=== PATIENT | male | born 1975 | race Caucasian/White ===

== ENCOUNTER → 2019-07-22 08:12 | Outpatient (BNVA) | payer MEDICARE, MEDICAID, SELFPAY | PROVIDERS: Family Provider Nurse Practitioner; PCP Nurse Practitioner; Visit Provider Nurse Practitioner Psychiatric/Mental Health | DX: F72 Severe intellectual disabilities (principal); Z72.89 Other problems related to lifestyle; F84.0 Autistic disorder | CPT/HCPCS: 99213 ==

== ENCOUNTER → 2019-10-27 07:43 | Outpatient (BNVA) | payer MEDICARE, MEDICAID, SELFPAY | PROVIDERS: Family Provider Nurse Practitioner; PCP Internal Medicine; Visit Provider Nurse Practitioner Psychiatric/Mental Health | DX: F72 Severe intellectual disabilities (principal); Z72.89 Other problems related to lifestyle; F84.0 Autistic disorder; F41.1 Generalized anxiety disorder | CPT/HCPCS: 99213 ==

== ENCOUNTER → 2020-01-12 07:55 | Outpatient (BNVA) | payer MEDICAID, SELFPAY | PROVIDERS: Family Provider Nurse Practitioner; Visit Provider Nurse Practitioner Psychiatric/Mental Health | DX: F72 Severe intellectual disabilities (principal); Z72.89 Other problems related to lifestyle; F84.0 Autistic disorder | CPT/HCPCS: 99214 ==

== ENCOUNTER → 2020-02-11 08:09 | Outpatient (BNVA) | payer MEDICAID, SELFPAY | PROVIDERS: Family Provider Nurse Practitioner; Visit Provider Nurse Practitioner Psychiatric/Mental Health | DX: F72 Severe intellectual disabilities (principal); Z72.89 Other problems related to lifestyle; F84.0 Autistic disorder | CPT/HCPCS: 99214 ==

== ENCOUNTER → 2020-02-16 09:04 | Outpatient (BNVA) | payer MEDICARE, MEDICAID, SELFPAY | PROVIDERS: Family Provider Nurse Practitioner; Visit Provider Nurse Practitioner Psychiatric/Mental Health | DX: Z79.899 Other long term (current) drug therapy (principal) | CPT/HCPCS: 80061; 83036 ==

== ENCOUNTER → 2020-03-17 08:16 | Outpatient (BNVA) | payer MEDICARE, MEDICAID, SELFPAY | PROVIDERS: Family Provider Nurse Practitioner; Visit Provider Nurse Practitioner Psychiatric/Mental Health | DX: F72 Severe intellectual disabilities (principal); Z72.89 Other problems related to lifestyle; F84.0 Autistic disorder | CPT/HCPCS: 99213 ==

== ENCOUNTER → 2020-06-09 08:18 | Outpatient (BNVA) | payer MEDICARE, MEDICAID, SELFPAY | PROVIDERS: Visit Provider Nurse Practitioner Psychiatric/Mental Health | DX: F84.0 Autistic disorder (principal); F72 Severe intellectual disabilities; Z72.89 Other problems related to lifestyle | CPT/HCPCS: 99213 ==

== ENCOUNTER → 2020-09-06 07:40 | Outpatient (BNVA) | payer MEDICARE, MEDICAID, SELFPAY | PROVIDERS: Visit Provider Nurse Practitioner Psychiatric/Mental Health | DX: F84.0 Autistic disorder (principal); F72 Severe intellectual disabilities; Z72.89 Other problems related to lifestyle | CPT/HCPCS: 99214 ==

== ENCOUNTER → 2020-12-21 13:31 | Outpatient (BNVA) | payer MEDICARE, MEDICAID, SELFPAY | PROVIDERS: Visit Provider Nurse Practitioner Psychiatric/Mental Health | DX: F72 Severe intellectual disabilities (principal); Z72.89 Other problems related to lifestyle; F84.0 Autistic disorder | CPT/HCPCS: 99214 ==

== ENCOUNTER → 2021-02-20 10:08 | Outpatient (BNVA) | payer MEDICARE, MEDICAID, SELFPAY | PROVIDERS: Visit Provider Nurse Practitioner Psychiatric/Mental Health | DX: F72 Severe intellectual disabilities (principal); Z72.89 Other problems related to lifestyle; F84.0 Autistic disorder | CPT/HCPCS: 99214 ==

== ENCOUNTER → 2021-08-08 10:29 | Outpatient (BNVA) | payer MEDICARE, MEDICAID, SELFPAY | PROVIDERS: Visit Provider Nurse Practitioner Psychiatric/Mental Health | DX: F72 Severe intellectual disabilities (principal); F84.0 Autistic disorder; Z72.89 Other problems related to lifestyle; Z79.899 Other long term (current) drug therapy | CPT/HCPCS: 99214 ==

== ENCOUNTER 2021-09-28 11:28 | Observation (INO) | payer MEDICARE, MEDICAID, SELFPAY ==
[2021-09-28 11:33] VITALS: BP 140/91; PULSE 82; RESP 16; TEMP 36.7; O2SAT 95
--- NOTE | 2021-09-28 11:46 | W.ED.GENADLT ---
HPI - General Adult General: Chief complaint: General Medical Stated complaint: found object in stool Time Seen by Provider: 09/28/21 11:45 Limitations: other History of Present Illness: Mr Kimball is a 46-year-old gentleman with history of severe intellectual disability, nonverbal at baseline, history of self-injurious behavior who presents to the emergency department accompanied by staff for concern over foreign body in stool. He has had approximately 1 week history of constipation. He was seen on Saturday for constipation in the outpatient setting and treated with mag citrate. He did have bowel movement on Saturday and a toothpick was noted in this. He has not had recurrence of bowel movement since that time. He began yesterday starting to appear more uncomfortable. He is unable to articulate his symptoms however has been biting his hands more which staff notes is typical of discomfort or worsening. History otherwise limited by baseline. Review of Systems General: Reports: ROS unobtainable due to medical condition PFSH ED PFSH: Medical History Autism spectrum disorder with accompanying language impairment and intellectual disability, requiring very substantial support GI bleed Herpes zoster Psychiatric care Self-injurious behavior Severe intellectual disabilities Family History Other Gallbladder disease Social History Smoking and tobacco status: never smoked Alcohol intake: never Substance/Drug Use: never Lives independently: No Housing: Other Details: [facility] Marital status: Single Current occupational status: disabled Physical Exam Const: COMMON NORMALS: alert GENERAL APPEARANCE: cooperative and well developed HENMT: COMMON NORMALS: normocephalic and atraumatic HEAD & SCALP: normocephalic and atraumatic THROAT: posterior oropharynx normal Eye: COMMON NORMALS: conjunctivae normal CONJUNCTIVA: Yes conjunctivae normal SCLERA: sclerae normal Neck/C-Spine: COMMON NORMALS: supple GENERAL: Yes trachea midline Resp: COMMON NORMALS: normal respiratory effort and clear to auscultation bilaterally AUSCULTATION: clear to auscultation bilaterally Cardio: COMMON NORMALS: regular rate and regular rhythm RATE: regular rate RHYTHM: regular rhythm GI: COMMON NORMALS: Soft to palpation PALPATION: Yes Soft to palpation, Yes Tenderness to palpation present (GI), No Guarding due to palpation present (GI) and No Rigid due to palpation PERCUSSION: normal to percussion Extremity: GENERAL: Yes normal exam except as noted and No edema Neuro: COMMON NORMALS: moves all extremities SENSORIUM/ORIENTATION: Yes alert Course ED course: - Patient was seen and evaluated by me at bedside - Patient placed on cardiac monitors, IV access obtained - Initial evaluation notable for exam as above. Limited due to patient's baseline - Labs personally interpreted by me - Labs notable for no leukocytosis, normal hemoglobin. Electrolytes unremarkable. - Imaging notable for likely esophagitis and gastritis. Additional air-fluid levels in small bowel suspicious for adynamic ileus or developing small bowel obstruction. Additional evidence of pneumonia. -Antibiotics ordered - Upon serial reexamination after treatment the patient was similar - Based on patient history, evaluation, and testing as interpreted the most likely cause of the patient's condition is uncertain. Possibly pneumonia and ileus. -Challenging situation, under normal circumstances patient could trial treatment at home however given patient's baseline and inability to assess worsening he requires further inpatient observation to await return of bowel functions and improved abdominal discomfort - The results of ED evaluation were discussed with the patient's staffincluding plan for admission due to requirement for level of care not available if discharged to prevent significant worsening/deterioration. - Admitting service was contacted and Dr Mckoy with the hospitalist service agreed to admit the patient - Patient was admitted without further deterioration or significant events. Note: Click bubbles or prepopulated ruff in note writing are used for assistance with data collection and billing and are inherently more limited than narrative and other text portions of this note. Please use narrative for additional clinical history and defer to narrative/free test for any case of contradictory information. If information appears in only free text or click bubble it should be considered present or absent as reported. Please contact note assembly instructions writer for clarifications of clinical information or contradictory information. MDM is a brief summary, contradictory or erroneous seeming information should be clarified and full note should be reviewed. Vital Signs: Vital signs: Vital Signs Temperature 97.4 F L 09/29/21 13:43 Pulse Rate 69 09/29/21 13:43 Respiratory Rate 17 09/29/21 13:43 Blood Pressure 115/75 09/29/21 08:10 Pulse Oximetry 100 09/29/21 13:43 [facility] - General Adult Medical Decision Making 46-year-old gentleman who is nonverbal at baseline presenting with concern over ingested foreign body and increasing self-harm behaviors consistent with discomfort. CT with possible pneumonia as well as ileus versus small bowel obstruction. Admitted for further observation and treatment. Medical Records I reviewed the patient's medical records. Lab Data I reviewed the patient's lab results. : 09/29/21 08:29 09/29/21 08:29 Radiology Impressions Abdomen/Pelvis CT 09/28/21 11:59 IMPRESSION: 1. Small esophageal hiatal hernia with diffuse thickening suspicious for esophagitis. Thickening of the gastric fundus suspicious for gastritis. 2. Distended stomach with air-fluid level and diffuse gaseous distention of small bowel loops throughout the anterior abdomen. Distal small bowel loops appear decompressed. Findings suspicious for adynamic ileus versus developing partial small bowel obstruction. No visualized transition point. 3. Moderate diffuse pancolonic constipation. 4. Evidence of bladder outlet obstruction with enlarged prostate. 5. Patchy infiltrates within the lung bases RIGHT greater than LEFT consistent with pneumonia. 6. Several noncalcified nodules in the lung bases partially visualized measuring up to 7 mm. Suggestion of lymphadenopathy or soft tissue lesion RIGHT inferior hilum partially visualized. Pulmonary mass not excluded. Recommend follow-up chest CT. Laboratory Results WBC 6.6 10^3/uL (4.0-10.0) 09/28/21 13:42 RBC 4.15 10^6/uL (4.1-5.3) 09/28/21 13:42 Hgb 12.9 g/dL (11.7-16.6) 09/28/21 13:42 Hct 39.2 % (42.0-52.0) L 09/28/21 13:42 MCV 94.5 fl (80-94) H 09/28/21 13:42 MCH 31.1 pg (28.0-34.0) 09/28/21 13:42 MCHC 32.9 g/dL (30.0-36.0) 09/28/21 13:42 RDW 12.9 % (12.1-15.1) 09/28/21 13:42 Plt Count 453 10^3/cmm (130-400) H 09/28/21 13:42 MPV 8.9 fL (7.4-10.4) 09/28/21 13:42 Neut % (Auto) 63.8 % 09/28/21 13:42 Lymph % (Auto) 22.8 % 09/28/21 13:42 [place] % (Auto) 6.2 % 09/28/21 13:42 Eos % (Auto) 4.8 % 09/28/21 13:42 Baso % (Auto) 2.1 % 09/28/21 13:42 Neut # (Auto) 4.23 10^3/uL (1.8-7.7) 09/28/21 13:42 Lymph # (Auto) 1.5 10^3/uL (0.8-4.8) 09/28/21 13:42 [place] # (Auto) 0.4 10^3/uL (0.2-0.9) 09/28/21 13:42 Eos # (Auto) 0.3 10^3/uL (0.0-0.8) 09/28/21 13:42 Baso # (Auto) 0.1 10^3/uL (0.0-0.1) 09/28/21 13:42 Nucleated RBC % (auto) 0 % 09/28/21 13:42 Nucleated RBCs # 0.0 /100WBC 09/28/21 13:42 Sodium 144 mmol/L (136-145) 09/28/21 13:42 Potassium 4.4 mmol/L (3.5-5.1) 09/28/21 13:42 Chloride 106 mmol/L (98-107) 09/28/21 13:42 Carbon Dioxide 28 mmol/L (22-29) 09/28/21 13:42 Anion Gap 14.4 (5-19) 09/28/21 13:42 BUN 16 mg/dL (6-20) 09/28/21 13:42 Creatinine 0.8 mg/dL (0.7-1.2) 09/28/21 13:42 GFR Calculation 103.6 mL/min (90-130) 09/28/21 13:42 Glucose 86 mg/dL (65-115) 09/28/21 13:42 Calculated Osmolality 298 mOsm/kg (285-295) H 09/28/21 13:42 Calcium 9.1 mg/dL (8.5-10.5) 09/28/21 13:42 Total Bilirubin 0.2 mg/dL (0.15-1.2) 09/28/21 13:42 AST 18 U/L (0-40) 09/28/21 13:42 ALT 18 U/L (0-41) 09/28/21 13:42 Alkaline Phosphatase 145 IU/L (40-130) H 09/28/21 13:42 Total Protein 7.4 g/dL (6.6-8.7) 09/28/21 13:42 Albumin 3.9 g/dL (3.5-5.2) 09/28/21 13:42 Globulin 3.5 g/dL (1.3-4.6) 09/28/21 13:42 Lipase 25 U/L (13-60) 09/28/21 13:42 Discharge Plan Discharge Patient Disposition: Placed in Observation Admit Provider: Lio Mckoy Clinical Impression: Autism spectrum disorder with accompanying language impairment and intellectual disability, requiring very substantial support, Pneumonia, Adynamic ileus Discharge Diet: Regular Discharge Activity: Increase activity as tolerated Coding Level of Care Code ED Cupola Patcher Helper for [facility] Edel
--- NOTE | 2021-09-28 11:59 | CT_ITS ---
WS: [id number] CT ABDOMEN PELVIS TECHNIQUE: Noncontrast CT of the abdomen and pelvis with coronal and sagittal reformatted images. CLINICAL INFORMATION: constipation, ingested toothpick, abd pain COMPARISON: 2018 DLP: 1297.[address] scans at [facility] use at least one of these dose optimization techniques: automated e xposure control; mA and/or kV adjustment per patient size (includes targeted exams where dose is matc hed to clinical indication); or iterative reconstruction. FINDINGS: Some images degraded by beam hardening artifact from overlying wires and catheters. Nodular patchy infiltrates within the RIGHT middle lobe and RIGHT greater than LEFT lower lobes. Nikhil mmend correlation for pneumonia. Several small noncalcified pulmonary nodules in the visualized lung bases measuring up to 7 mm. This appears new since 2018. Suggestion of RIGHT infrahilar mass or lymph adenopathy measuring 2.3 CM. Recommend further evaluation with chest CT. Small esophageal hiatal hernia. Mild wall thickening in the distal esophagus can be seen with esophag itis/gastritis. Gaseous distention of the stomach with air-fluid level. Gastric wall thickening likel y due to gastritis. Multiple dilated loops of air distended bowel in the upper abdomen appears to rep resent proximal small bowel. Moderate colonic constipation. More distal small bowel in the RIGHT lowe r quadrant appears decompressed. Exam is limited without IV or oral contrast. Mild hepatomegaly. Noncontrast spleen is normal. Mild diffuse mesenteric edema. Normal caliber abdomi nal aorta. No hydronephrosis in either kidney. Adrenal glands appear normal. Mild diffuse bladder wal l thickening may be due to bladder outlet obstruction. Prominent prostate measuring 4.[address]/CT abdomen pelvis wo con [id number] IMPRESSION: 1. Small esophageal hiatal hernia with diffuse thickening suspicious for esoph agitis. Thickening of the gastric fundus suspicious for gastritis. 2. Distended stomach with air-fluid level and diffuse gaseous distention of sm all bowel loops throughout the anterior abdomen. Distal small bowel loops appea r decompressed. Findings suspicious for adynamic ileus versus developing partia l small bowel obstruction. No visualized transition point. 3. Moderate diffuse pancolonic constipation. 4. Evidence of bladder outlet obstruction with enlarged prostate. 5. Patchy infiltrates within the lung bases RIGHT greater than LEFT consistent with pneumonia. 6. Several noncalcified nodules in the lung bases partially visualized measuri ng up to 7 mm. Suggestion of lymphadenopathy or soft tissue lesion RIGHT inferi or hilum partially visualized. Pulmonary mass not excluded. Recommend follow-up chest CT.
[2021-09-28 13:51] LABS: Basophils # 0.1 10^3/uL (0.0-0.1); Basophils % 2.1 %; Eosinophils # 0.3 10^3/uL (0.0-0.8); Eosinophils % 4.8 %; Hematocrit 39.2 % (42.0-52.0); Hemoglobin 12.9 g/dL (11.7-16.6); Lymphocytes # 1.5 10^3/uL (0.8-4.8); Lymphocytes % 22.8 %; Mean Corpuscular HGB Conc 32.9 g/dL (30.0-36.0); Mean Corpuscular Hemoglobin 31.1 pg (28.0-34.0); Mean Corpuscular Volume 94.5 fl (80-94); Mean Platelet Volume 8.9 fL (7.4-10.4); Monocytes # 0.4 10^3/uL (0.2-0.9); Monocytes % 6.2 %; Neutrophils # 4.23 10^3/uL (1.8-7.7); Neutrophils % 63.8 %; Nucleated Red Blood Cells % 0 %; Platelet Count 453 10^3/cmm (130-400); Red Blood Count 4.15 10^6/uL (4.1-5.3); Red Cell Distribution Width 12.9 % (12.1-15.1); White Blood Count 6.6 10^3/uL (4.0-10.0)
[2021-09-28 14:12] LABS: Alanine Aminotransferase 18 U/L (0-41); Albumin Level 3.9 g/dL (3.5-5.2); Alkaline Phosphatase 145 IU/L (40-130); Anion Gap 14.4 (5-19); Aspartate Amino Transferase 18 U/L (0-40); Blood Urea Nitrogen 16 mg/dL (6-20); Calcium 9.1 mg/dL (8.5-10.5); Carbon Dioxide 28 mmol/L (22-29); Chloride 106 mmol/L (98-107); Globulin 3.5 g/dL (1.3-4.6); Glomerular Filtration Rate 103.6 mL/min (90-130); Glucose 86 mg/dL (65-115); Osmolality Calculated 298 mOsm/kg (285-295); Potassium 4.4 mmol/L (3.5-5.1); Sodium 144 mmol/L (136-145); Total Bilirubin 0.2 mg/dL (0.15-1.2); Total Protein 7.4 g/dL (6.6-8.7)
[2021-09-28] MEDS: cefTRIAXone 1,000 MG in sodium chloride 0.9% (plus) 50 ML 100 MG IV (14:28)
[2021-09-28] MEDS: doxycycline 100 MG in sodium chloride 0.9% (plus) 100 ML IV (15:02)
[2021-09-28 16:21] VITALS: BP 114/66; PULSE 75; RESP 14; O2SAT 99
[2021-09-28 16:28] VITALS: BMI 20.5
[2021-09-28 17:26] VITALS: BP 126/86; PULSE 69; RESP 18; TEMP 36.3; O2SAT 99
--- NOTE | 2021-09-28 17:40 | P.HP_ITS ---
Providers/Chief Complaint Admitting Physician: Lio Mckoy Chief Complaint: found object in stool History of Present Illness 46-year-old gentleman with severe autism, affective disorder, skilled nursing resident completely dependent for care, nonverbal, history of self injury behavior, was brought over for evaluation due to finding of toothpick in his stool, after treatment for constipation, bowel movement on Saturday. No stools since then. Has been appearing more uncomfortable, with some biting of his hands reportedly considered due to him being uncomfortable. In ER he is afebrile, without leukocytosis, saturating well on room air, without tachycardia, maintain blood pressure. With unremarkable CBC and chemistry, except for mild ovation of alkaline phosphatase at 145. No abdominal pain or tenderness. CT abdomen pelvis obtained showing small esophageal hiatal hernia with diffuse thickening suspicion for esophagitis, thickening of gastric fundus suspicious for gastritis. History of stomach with air-fluid level and diffuse gaseous distention of small bowel loops throughout the anterior abdomen. Distal small bowel loops appear decompressed. Findings suspicious for adynamic ileus versus developing partial small bowel obstruction. Moderate diffuse pancolonic constipation. Evidence of bladder outlet obstruction with enlarged prostate. Patchy infiltrates within lung bases, right greater than left, consistent with pneumonia. Several noncalcified nodules in lung bases partially visualized measuring up to 7 mm. Suggestion of lymphadenopathy or soft tissue lesion right inferior hilum partially visualized. Pulmonary mass not excluded. Recommended follow-up chest CT. Review of Systems General: Reports: ROS unobtainable due to medical condition and ROS unobtainable due to mental status Medications/Allergies Home Medications Medication Instructions Recorded Confirmed Last Taken Type triamcinolone acetonide 0.1 % 1 applic TOPICAL BID #80 g 11/29/20 09/28/21 09/28/21 Rx topical ointment aripiprazole 10 mg tablet (Abilify) 10 mg PO QAM #90 tab 08/08/21 09/28/21 09/28/21 Rx ascorbate calcium (vitamin C) 500 500 mg PO .Sat. tab 08/08/21 09/28/21 09/27/21 History mg tablet clonazepam 2 mg disintegrating 2 mg PO BEDTIME #30 tab 08/08/21 09/28/21 09/27/21 Rx tablet ferrous sulfate 325 mg (65 mg 325 mg PO .Sat. Fri tab 08/08/21 09/28/21 09/27/21 History iron) tablet montelukast 10 mg tablet 10 mg PO DAILY 08/08/21 09/28/21 09/27/21 History (Singulair) polyethylene glycol 3350 17 8.5 g PO BEDTIME g 08/08/21 09/28/21 09/27/21 History gram/dose oral powder (Miralax) propranolol 10 mg tablet 10 mg PO TID 08/08/21 09/28/21 09/28/21 History acetaminophen 325 mg tablet 650 mg PO Q6H PRN 09/28/21 09/28/21 Unknown History chlorhexidine gluconate 0.12 % 5 ml BUCCAL DAILY 09/28/21 09/28/21 09/27/21 History mouthwash fluticasone propionate 50 2 spray INTRANASAL DAILY PRN 09/28/21 09/28/21 Unknown History mcg/actuation nasal spray,suspension guaifenesin 100 mg/5 mL oral liquid 200 mg PO QID PRN 09/28/21 09/28/21 Unknown History guaifenesin 600 mg tablet, 600 mg PO BID PRN 09/28/21 09/28/21 Unknown History extended release 12 hr lactulose 20 gram/30 mL oral 20 g PO BID PRN 09/28/21 09/28/21 Unknown History solution loratadine 10 mg tablet 10 mg PO DAILY PRN 09/28/21 09/28/21 Unknown History magnesium hydroxide 400 mg/5 mL 15 ml PO DAILY PRN 09/28/21 09/28/21 Unknown History oral suspension (Milk of Magnesia) melatonin 3 mg capsule 3 mg PO BEDTIME 09/28/21 09/28/21 09/27/21 History melatonin 3 mg tablet 3 mg PO DAILY PRN 09/28/21 09/28/21 Unknown History menthol 0.44 %-zinc oxide 20.6 % 1 applic TOPICAL DAILY PRN 09/28/21 09/28/21 Unknown History topical ointment (Calmoseptine) omeprazole 20 mg capsule,delayed 20 mg PO DAILY 09/28/21 09/28/21 09/28/21 History release ondansetron HCl 8 mg tablet 8 mg PO Q8H PRN 09/28/21 09/28/21 Unknown History oxymetazoline 0.05 % nasal spray 2 spray INTRANASAL BID PRN 09/28/21 09/28/21 Unknown History (Vicks Sinex 12-Hour) polyethylene glycol 3350 17 12.75 g PO DAILY 09/28/21 09/28/21 09/28/21 History gram/dose oral powder (Miralax) scopolamine base 1 mg over 3 days 1 mg TRANSDERMAL Q3D 09/28/21 09/28/21 09/28/21 History transdermal patch sodium phosphates 19 gram-7 118 ml OH DAILY PRN 09/28/21 09/28/21 Unknown History gram/118 mL enema (Fleet Enema) Allergies Allergy/AdvReac Type Severity Reaction Status Date / Time No Known Allergies Allergy Verified 09/28/21 11:41 PFSH Acute PFSH: Medical History Autism spectrum disorder with accompanying language impairment and intellectual disability, requiring very substantial support GI bleed Herpes zoster Psychiatric care Self-injurious behavior Severe intellectual disabilities Family History Other Gallbladder disease Social History Smoking and tobacco status: never smoked Alcohol intake: never Substance/Drug Use: never Lives independently: No Housing: Other Details: intermediate Marital status: Single Current occupational status: disabled Vitals/I&O/Wt Last Vital Signs Temp 98.0 F 09/28/21 11:33 Pulse 75 09/28/21 16:21 Resp 14 09/28/21 16:21 BP 114/66 09/28/21 16:21 Pulse Ox 99 09/28/21 16:21 09/28/21 09/28/21 09/28/21 06:59 14:59 22:59 Intake Total 150 / 150 Balance 150 / 150 Weight last 48 hrs Weight 64.682 kg Physical Exam Const: COMMON NORMALS: alert ORIENTATION/CONSCIOUSNESS: Yes awake OTHER: Sitting up in bed, stuffed toys in hand, vocalizing, intermittently jumping up and down on his knees. HENMT: COMMON NORMALS: normocephalic, EAC's normal, Normal external nose present and moist oral mucous membranes HEAD & SCALP: normocephalic NOSE: Normal external nose present EXTERNAL AUDITORY CANAL: EAC's normal Neck/C-Spine: COMMON NORMALS: no meningeal signs Chest: CHEST: Yes Symmetrical chest wall rise Resp: COMMON NORMALS: clear to auscultation bilaterally AUSCULTATION: clear to auscultation bilaterally Cardio: COMMON NORMALS: regular rate, regular rhythm and No murmurs present (Cardio) RATE: regular rate RHYTHM: regular rhythm GI: COMMON NORMALS: Normal to inspection, nondistended, normoactive bowel sounds present, Soft to palpation and non-tender PALPATION: Yes Soft to palpation Extremity: COMMON NORMALS: no pedal edema Neuro: COMMON NORMALS: moves all extremities SENSORIUM/ORIENTATION: Yes alert MENINGEAL SIGNS: Yes no meningeal signs Psych: COMMON NORMALS: mental status grossly normal Skin: COMMON NORMALS: no wounds RASHES: no rashes Data : 09/28/21 13:42 09/28/21 13:42 A&P Assessment and plan (1) Pneumonia: Continue ceftriaxone, doxycycline. Assess COVID-19 PCR panel. Status: Acute (2) Adynamic ileus: Bowel regimen, as he may allow. Suppository and enema may be difficult. P.o. attempted first. If will allow suppository. Check lipase, with history of pancreatitis in the past. Status: Acute (3) Autism spectrum disorder with accompanying language impairment and intellectual disability, requiring very substantial support: Status: Chronic (4) Severe intellectual disabilities: Status: Chronic (5) Self-injurious behavior: He has been biting his more, possibly due to discomfort, unclear if possibly from pneumonia, constipation, possibly some urinary retention with BPH. Status: Chronic (6) Alkaline phosphatase elevation: Follow-up level. Status: Acute (7) BPH (benign prostatic hyperplasia): Evidence of bladder outlet obstruction on CT. Enlarged prostate. Add Flomax Monitor I&O Status: Acute Attestations Medical Necessity Statement*: Place in observation for additional and management in the gentleman with behavioral change from usual with severe intellectual disability/severe autism, with pneumonia, adynamic ileus history of pancreatitis, evidence of bladder outlet obstruction, BPH Coding Level of Care Code Acute Agricultural Consultant for [facility]el Diagnoses Pneumonia J18.9 Adynamic ileus K56.0 Autism spectrum disorder with accompanying language impairment and intellectual disability, requiring very substantial support F84.0 Severe intellectual disabilities F72 Self-injurious behavior Z72.89 Alkaline phosphatase elevation R74.8 BPH (benign prostatic hyperplasia) N40.0
[2021-09-28] MEDS: lactulose oral liq 20 gm/30 mL UDC PO (18:44)
[2021-09-28] MEDS: tamsulosin 0.4 mg Capsule PO (18:45)
[2021-09-28 19:57] VITALS: BP 134/74; PULSE 64; RESP 20; TEMP 36.4; O2SAT 98
[2021-09-28 20:02] LABS: Lipase 25 U/L (13-60)
[2021-09-28] MEDS: propranolol 20 mg Tablet 10 MG PO (20:29)
[2021-09-28] MEDS: CLONazepam 1 mg Tablet 2 MG PO (20:29)
[2021-09-28] MEDS: polyethylene glycol 3350 Pkt 17 gm 8.5 GM PO (20:29)
[2021-09-28 23:54] LABS: Adenovirus Not Detected (NOT DETECT); Chlamydia Pneumoniae Not Detected (NOT DETECT); Coronavirus 229E,HKU1,NL63,OC4 Not Detected (NOT DETECT); Human Metapneumovirus Not Detected (NOT DETECT); Human Rhinovirus/Enterovirus Not Detected (NOT DETECT); Influenza A Not Detected (NOT DETECT); Influenza A H1 Not Detected (NOT DETECT); Influenza A H1-2009 Not Detected (NOT DETECT); Influenza A H3 Not Detected (NOT DETECT); Influenza B Not Detected (NOT DETECT); Mycoplasma Pneumoniae Not Detected (NOT DETECT); Parainfluenza Virus Type 1 Not Detected (NOT DETECT); Parainfluenza Virus Type 2 Not Detected (NOT DETECT); Parainfluenza Virus Type 3 Not Detected (NOT DETECT); Parainfluenza Virus Type 4 Not Detected (NOT DETECT); Respiratory Syncytial Virus A Not Detected (NOT DETECT); Respiratory Syncytial Virus B Not Detected (NOT DETECT); SARS-COV-2 Not Detected (NOT DETECT)
[2021-09-29 00:15] VITALS: BP 93/56; PULSE 72; RESP 17; TEMP 36.6; O2SAT 93
[2021-09-29 05:52] VITALS: BP 131/73; PULSE 86; RESP 22; O2SAT 97
[2021-09-29] MEDS: ARIPiprazole 10 mg Tablet PO (06:06)
[2021-09-29 08:10] VITALS: BP 115/75; PULSE 90; RESP 18; TEMP 36.5; O2SAT 95
[2021-09-29] MEDS: tamsulosin 0.4 mg Capsule PO (08:35)
[2021-09-29] MEDS: propranolol 20 mg Tablet 10 MG PO (08:36)
[2021-09-29] MEDS: montelukast sodium 10 mg Tablet PO (08:36)
[2021-09-29] MEDS: pantoprazole DR 40 mg Tablet PO (08:37)
[2021-09-29] MEDS: lactulose oral liq 20 gm/30 mL UDC PO (08:38)
[2021-09-29 08:52] LABS: Basophils # 0.1 10^3/uL (0.0-0.1); Eosinophils # 0.3 10^3/uL (0.0-0.8); Eosinophils % 4.3 %; Hematocrit 38.1 % (42.0-52.0); Hemoglobin 12.5 g/dL (11.7-16.6); Lymphocytes # 1.1 10^3/uL (0.8-4.8); Mean Corpuscular HGB Conc 32.8 g/dL (30.0-36.0); Mean Corpuscular Hemoglobin 30.4 pg (28.0-34.0); Mean Corpuscular Volume 92.7 fl (80-94); Monocytes # 0.4 10^3/uL (0.2-0.9); Monocytes % 6.4 %; Neutrophils # 4.68 10^3/uL (1.8-7.7); Nucleated Red Blood Cells % 0 %; Platelet Count 442 10^3/cmm (130-400); Red Blood Count 4.11 10^6/uL (4.1-5.3); Red Cell Distribution Width 12.9 % (12.1-15.1); White Blood Count 6.6 10^3/uL (4.0-10.0)
[2021-09-29 09:14] LABS: Alanine Aminotransferase 19 U/L (0-41); Albumin Level 3.8 g/dL (3.5-5.2); Alkaline Phosphatase 137 IU/L (40-130); Aspartate Amino Transferase 17 U/L (0-40); Blood Urea Nitrogen 15 mg/dL (6-20); Calcium 9.2 mg/dL (8.5-10.5); Carbon Dioxide 28 mmol/L (22-29); Chloride 104 mmol/L (98-107); Globulin 3.3 g/dL (1.3-4.6); Glomerular Filtration Rate 103.6 mL/min (90-130); Glucose 105 mg/dL (65-115); Osmolality Calculated 291 mOsm/kg (285-295); Sodium 140 mmol/L (136-145); Total Bilirubin 0.2 mg/dL (0.15-1.2); Total Protein 7.1 g/dL (6.6-8.7)
[2021-09-29] MEDS: polyethylene glycol 3350 Pkt 17 gm 12.75 GM PO (09:50)
[2021-09-29 11:19] VITALS: PULSE 69; RESP 17; TEMP 36.3; O2SAT 100
--- NOTE | 2021-09-29 12:43 | P.DS_ITS ---
Discharge Providers Date of Admission: 09/28/21 14:23 Date of Discharge: September 29, 2021 Attending Provider at Admission: Lio Mckoy Attending Provider at Discharge: Lio Mckoy Diagnoses at Discharge Discharge Diagnosis (1) Pneumonia: Status: Acute (2) Adynamic ileus: Status: Acute (3) Autism spectrum disorder with accompanying language impairment and intellectual disability, requiring very substantial support: Status: Chronic (4) Severe intellectual disabilities: Status: Chronic (5) Self-injurious behavior: Status: Chronic (6) Alkaline phosphatase elevation: Status: Acute (7) BPH (benign prostatic hyperplasia): Status: Acute Reason for Visit Reason for Visit: found object in stool Brief History: 46-year-old gentleman with severe autism, affective disorder, [place] [facility] resident completely dependent for care, nonverbal, history of self injury behavior, was brought over for evaluation due to finding of toothpick in his stool, after treatment for constipation, bowel movement on Saturday.? No stools since then.? Has been appearing more uncomfortable, with some biting of his hands reportedly considered due to him being uncomfortable.? In ER he is afebrile, without leukocytosis, saturating well on room air, without tachycardia, maintain blood pressure.? With unremarkable CBC and chemistry, except for mild ovation of alkaline phosphatase at 145.? No abdominal pain or tenderness.? CT abdomen pelvis obtained showing small esophageal hiatal hernia with diffuse thickening suspicion for esophagitis, thickening of gastric fundus suspicious for gastritis.? History of stomach with air-fluid level and diffuse gaseous distention of small bowel loops throughout the anterior abdomen.? Distal small bowel loops appear decompressed.? Findings suspicious for adynamic ileus versus developing partial small bowel obstruction.? Moderate diffuse pancolonic constipation.? Evidence of bladder outlet obstruction with enlarged prostate.? Patchy infiltrates within lung bases, right greater than left, consistent with pneumonia.? Several noncalcified nodules in lung bases partially visualized measuring up to 7 mm.? Suggestion of lymphadenopathy or soft tissue lesion right inferior hilum partially visualized.? Pulmonary mass not excluded.? Recommended follow-up chest CT. Hospital Course Hospital Course She was monitored in the hospital overnight. He did well with good oxygen saturation, 100% on room air, with significant improvement in restlessness and self biting, today he is calm and like his usual self. COVID-19 test was negative. He has passed flatus, although so far not yet having bowel movement. His bowel regimen will need to be stepped up. He is given additional prescription for Dulcolax suppositories if he will allow, and with request to also add fiber to his diet. With history of pancreatitis in the past, lipase was also checked, and was normal. He is tolerating oral intake. With some concern for bladder outlet obstruction, [place] catheter has not been attempted for safety concerns, but he is noted to be urinating, and has been started on Flomax. In case of concerns of urinary retention going forward referral to urology may be considered. He is asked to follow-up with primary provider regarding mild elevation of alkaline phosphatase 137 today. Is also asked to follow-up with primary provider to discuss referral for chest CT after he recovers from pneumonia to exclude malignancy with incidentally noted lung nodules and right hilar lymph nodes. Physical Exam Narrative: Caregiver at bedside. Const: COMMON NORMALS: alert ORIENTATION/CONSCIOUSNESS: Yes awake OTHER: Sitting up in bed, stuffed toy in hand, calm during visit and examination. HENMT: COMMON NORMALS: normocephalic, EAC's normal, Normal external nose present and moist oral mucous membranes HEAD & SCALP: normocephalic NOSE: Normal external nose present EXTERNAL AUDITORY CANAL: EAC's normal Neck/C-Spine: COMMON NORMALS: no meningeal signs Chest: CHEST: Yes Symmetrical chest wall rise Resp: COMMON NORMALS: clear to auscultation bilaterally AUSCULTATION: clear to auscultation bilaterally Cardio: COMMON NORMALS: regular rate, regular rhythm and No murmurs present (Cardio) RATE: regular rate RHYTHM: regular rhythm GI: COMMON NORMALS: Normal to inspection, nondistended, normoactive bowel sounds present, Soft to palpation and non-tender PALPATION: Yes Soft to palpation Extremity: COMMON NORMALS: no pedal edema Neuro: COMMON NORMALS: moves all extremities SENSORIUM/ORIENTATION: Yes alert MENINGEAL SIGNS: Yes no meningeal signs Psych: COMMON NORMALS: mental status grossly normal Skin: COMMON NORMALS: no wounds RASHES: no rashes Discharge Data Studies Completed and Pending Completed Studies During Hospitalization Category Date Time Status CT abdomen pelvis wo con [id number] Stat Cat Scan 09/28/21 11:59 Completed Pending at discharge Category Date Time Status Complete Blood Count w/Auto AM LABS Lab 09/30/21 04:00 Ordered Complete Blood Count w/Auto AM LABS Lab 10/01/21 04:00 Ordered Comprehensive Metabolic Panel AM LABS Lab 09/30/21 04:00 Ordered Comprehensive Metabolic Panel AM LABS Lab 10/01/21 04:00 Ordered Radiology Impressions Abdomen/Pelvis CT 09/28/21 11:59 IMPRESSION: 1. Small esophageal hiatal hernia with diffuse thickening suspicious for esophagitis. Thickening of the gastric fundus suspicious for gastritis. 2. Distended stomach with air-fluid level and diffuse gaseous distention of small bowel loops throughout the anterior abdomen. Distal small bowel loops appear decompressed. Findings suspicious for adynamic ileus versus developing partial small bowel obstruction. No visualized transition point. 3. Moderate diffuse pancolonic constipation. 4. Evidence of bladder outlet obstruction with enlarged prostate. 5. Patchy infiltrates within the lung bases RIGHT greater than LEFT consistent with pneumonia. 6. Several noncalcified nodules in the lung bases partially visualized measuring up to 7 mm. Suggestion of lymphadenopathy or soft tissue lesion RIGHT inferior hilum partially visualized. Pulmonary mass not excluded. Recommend follow-up chest CT. Laboratory Results WBC 6.6 10^3/uL (4.0-10.0) 09/29/21 08:29 RBC 4.11 10^6/uL (4.1-5.3) 09/29/21 08:29 Hgb 12.5 g/dL (11.7-16.6) 09/29/21 08:29 Hct 38.1 % (42.0-52.0) L 09/29/21 08:29 MCV 92.7 fl (80-94) 09/29/21 08:29 MCH 30.4 pg (28.0-34.0) 09/29/21 08:29 MCHC 32.8 g/dL (30.0-36.0) 09/29/21 08:29 RDW 12.9 % (12.1-15.1) 09/29/21 08:29 Plt Count 442 10^3/cmm (130-400) H 09/29/21 08:29 MPV 9.0 fL (7.4-10.4) 09/29/21 08:29 Neut % (Auto) 71.0 % 09/29/21 08:29 Lymph % (Auto) 16.0 % 09/29/21 08:29 [place] % (Auto) 6.4 % 09/29/21 08:29 Eos % (Auto) 4.3 % 09/29/21 08:29 Baso % (Auto) 2.0 % 09/29/21 08:29 Neut # (Auto) 4.68 10^3/uL (1.8-7.7) 09/29/21 08: Lymph # (Auto) 1.1 10^3/uL (0.8-4.8) 09/29/21 08:29 [place] # (Auto) 0.4 10^3/uL (0.2-0.9) 09/29/21 08:29 Eos # (Auto) 0.3 10^3/uL (0.0-0.8) 09/29/21 08: Baso # (Auto) 0.1 10^3/uL (0.0-0.1) 09/29/21 08:29 Nucleated RBC % (auto) 0 % 09/29/21 08: Nucleated RBCs # 0.0 /100WBC 09/29/21 08:29 Sodium 140 mmol/L (136-145) 09/29/21 08:29 Potassium 4.0 mmol/L (3.5-5.1) 09/29/21 08: Chloride 104 mmol/L (98-107) 09/29/21 08:29 Carbon Dioxide 28 mmol/L (22-29) 09/29/21 08:29 Anion Gap 12.0 (5-19) 09/29/21 08:29 BUN 15 mg/dL (6-20) 09/29/21 08:29 Creatinine 0.8 mg/dL (0.7-1.2) 09/29/21 08:29 GFR Calculation 103.6 mL/min (90-130) 09/29/21 08:29 Glucose 105 mg/dL (65-115) 09/29/21 08:29 Calculated Osmolality 291 mOsm/kg (285-295) 09/29/21 08:29 Calcium 9.2 mg/dL (8.5-10.5) 09/29/21 08:29 Total Bilirubin 0.2 mg/dL (0.15-1.2) 09/29/21 08:29 AST 17 U/L (0-40) 09/29/21 08:29 ALT 19 U/L (0-41) 09/29/21 08:29 Alkaline Phosphatase 137 IU/L (40-130) H 09/29/21 08:29 Total Protein 7.1 g/dL (6.6-8.7) 09/29/21 08:29 Albumin 3.8 g/dL (3.5-5.2) 09/29/21 08:29 Globulin 3.3 g/dL (1.3-4.6) 09/29/21 08:29 Lipase 25 U/L (13-60) 09/28/21 13:42 Coronavirus 229E (PCR) Not detected (NOT DETECT) 09/28/21 Unknown SARS-CoV-2 (PCR) Not detected (NOT DETECT) 09/28/21 Unknown Vitals Last Vital Signs Temp 97.4 F L 09/29/21 11:19 Pulse 69 09/29/21 11:19 Resp 17 09/29/21 11:19 BP 115/75 09/29/21 08:10 Pulse Ox 100 09/29/21 11:19 Discharge Plan Discharge Patient Disposition: Home Condition: Stable Prescriptions: New tamsulosin 0.4 mg Capsule 0.4 mg PO BEDTIME Qty: 90 0RF bisacodyl [Dulcolax (bisacodyl)] 10 mg suppository 10 mg [place] DAILY PRN (Reason: constipation) Qty: 30 0RF cefdinir 300 mg capsule 300 mg PO BID 5 Days Qty: 10 0RF doxycycline hyclate 100 mg capsule 100 mg PO BID 5 Days Qty: 10 0RF Continued triamcinolone acetonide 0.1 % ointment 1 applic topical BID Qty: 80 3RF Rx Instructions: to back as directed montelukast [Singulair] 10 mg tablet 10 mg PO DAILY 0RF ferrous sulfate 325 mg (65 mg iron) tablet 325 mg PO .Sat. Sat 0RF polyethylene glycol 3350 [Miralax] 17 gram/dose powder 8.5 g PO BEDTIME 0RF propranolol 10 mg tablet 10 mg PO TID 0RF ascorbate calcium (vitamin C) 500 mg tablet 500 mg PO .Sat. Sat. 0RF aripiprazole [Abilify] 10 mg tablet 10 mg PO QAM Qty: 90 2RF Rx Instructions: Take one tablet every morning clonazepam 2 mg tablet,disintegrating 2 mg PO BEDTIME Qty: 30 3RF Rx Instructions: Take one tablet at bedtime Miralax 17 gram/dose Powder 12.75 g PO DAILY 0RF Rx Instructions: Take 3/4 capful in the morning melatonin 3 mg capsule 3 mg PO BEDTIME 0RF Rx Instructions: Take one capsule bedtime, may repeat dose prior to 3 am as needed to return to sleep acetaminophen 325 mg Tablet 650 mg PO Q6H PRN (Reason: Pain) 0RF melatonin 3 mg Tablet 3 mg PO DAILY PRN (Reason: Sleep) 0RF Rx Instructions: Take an additional 3mg at bedtime PRN if scheduled 3 mg is ineffective Milk of Magnesia 400 mg/5 mL Suspension 15 ml PO DAILY PRN (Reason: Constipation) 0RF Fleet Enema 19-7 gram/118 mL Enema 118 ml [place] DAILY PRN (Reason: Constipation) 0RF omeprazole 20 mg Capsule,Delayed Release(Dr/Ec) 20 mg PO DAILY 0RF scopolamine base 1 mg over 3 days Patch 3 Day 1 mg transdermal Q3D 0RF fluticasone propionate 50 mcg/actuation [place],Suspension 2 spray INTRANASAL DAILY PRN (Reason: Nasal Congestion) 0RF Rx Instructions: administer into each nostril loratadine 10 mg Tablet 10 mg PO DAILY PRN (Reason: Allergy Symptoms) 0RF chlorhexidine gluconate 0.12 % Mouthwash 5 ml BUCCAL DAILY 0RF Calmoseptine 0.44-20.6 % Ointment 1 applic TOPICAL DAILY PRN (Reason: Rash) 0RF lactulose 20 gram/30 mL Solution 20 g PO BID PRN (Reason: Constipation) 0RF guaifenesin 600 mg Tablet Extended Release 12hr 600 mg PO BID PRN (Reason: Congestion) 0RF Zofran 8 mg Tablet 8 mg PO Q8H PRN (Reason: Nausea) 0RF Q-Tussin 100 mg/5 mL Liquid 200 mg PO QID PRN (Reason: Congestion) 0RF Vicks Sinex 12-Hour 0.05 % [place],Non-Aerosol 2 spray INTRANASAL BID PRN (Reason: Nasal Congestion) 0RF Discharge Orders: Discharge Order (Routine); Ordered 09/29/21 Ordered By: Lio Mckoy Referrals: Primary, provider [Other] - 4-7 days Discharge Diet: Regular Discharge Activity: Increase activity as tolerated Patient Instructions: Doxycycline (By mouth), Tamsulosin (By mouth), Cefdinir (By mouth), Constipation (GEN), Pneumonia (GEN) Activity Restrictions/Additional Instructions: Please increase bowel regimen for constipation. Add Dulcolax suppositories if he will allow. Add fiber to meals. Complete antibiotic course for pneumonia. Please follow-up for reassessment with primary provider for pneumonia, and discuss also mild elevation of alkaline phosphatase. Please follow-up with primary provider regarding referral for chest CT after recovering from pneumonia to exclude malignancy with incidentally seen noncalcified nodules in the lung bases and lymph nodes in the right lung. Discuss signs of prostate enlargement on CT, signs of urinary bladder outlet obstruction due to which he is started on Flomax. If persistent concerns for urinary retention, consider follow-up with urology. Discharge Attestations Time Spent in Discharge Care*: greater than 30 min Quality Metrics Clinical Quality Measures [ No reported AMI, CVA or VTE this stay] Coding Level of Care Code Acute g [facility] note Diagnoses Pneumonia J18.9 Adynamic ileus K56.0 Autism spectrum disorder with accompanying language impairment and intellectual disability, requiring very substantial support F84.0 Severe intellectual disabilities F72 Self-injurious behavior Z72.89 Alkaline phosphatase elevation R74.8 BPH (benign prostatic hyperplasia) N40.0
[2021-09-29 13:43] VITALS: PULSE 69; RESP 17; TEMP 36.3; O2SAT 100
== END 2021-09-29 14:55 | disposition home or self-care (01) ==
LOC: ER 14:22 → MEDSURG 16:13
PROVIDERS: Admitting Provider Internal Medicine; Emergency Provider Emergency Medicine; Visit Provider Internal Medicine
DX: J18.9 Pneumonia, unspecified organism (principal); K56.0 Paralytic ileus; F84.0 Autistic disorder; F72 Severe intellectual disabilities; Z72.89 Other problems related to lifestyle; R74.8 Abnormal levels of other serum enzymes; N40.1 Benign prostatic hyperplasia with lower urinary tract symptoms; N13.8 Other obstructive and reflux uropathy
CPT/HCPCS: 36415; 74176; 80053; 83690; 85025; 87635; 96365; 96367; 99285; G0378; J0696; J3490

== ENCOUNTER 2021-10-23 07:47 | Outpatient (CLI) | payer MEDICARE, MEDICAID, SELFPAY ==
--- NOTE | 2021-10-23 08:08 | CT_ITS ---
WS: [id number] CT CHEST WITHOUT INTRAVENOUS CONTRAST HISTORY: LUNG NODULES TECHNIQUE: Contiguous 5 mm axial imaging performed on the thorax. Coronal and sagittal reformats are submitted. All CT scans at [facility] use at least one of these dose optimization techniques: automated exposure control; mA and/or kV adjustment per patient size (includes targeted exams where dose is matched to clinical indication); or iterative reconstruction. CONTRAST: None DLP: 542.04 mGy.cm COMPARISON: CT abdomen 09/28/2021 Quality of this examination is compromised by breathing motion artifact. Lungs and central airway: There is significant motion artifact throughout both lungs. Bilateral areas of nodularity and scattered opacifications. The opacifications appear to be in a tree-in-bud distrib ution and greatest throughout the RIGHT lung. The opacifications at the lung bases have improved sinc e the prior study. There are still opacifications concerning these are nodular. No mass. Pleura: Normal. No pleural effusion. Heart and pericardium: Normal size heart with no pericardial effusion. Mediastinum and alea: Hilar regions are difficult to evaluate without IV contrast. There are numerous mediastinal and hilar lymph nodes which do not appear enlarged. There is fullness at the RIGHT hilum . Diffuse thickening of the esophageal wall. Vessels: Normal size aortic and pulmonary artery. No coronary artery calcifications. Chest wall and lower neck: No soft tissue masses. Upper abdomen: Severe constipation. Osseous structures: No destructive process. CT/CT chest wo con [id number] IMPRESSION: 1. Quality of this examination is significantly compromised by breathing motio n artifact and lack of IV contrast. 2. Diffuse scattered bilateral tree-in-bud opacifications and small nodules. S ome of these have improved at the lung bases since the study of 09/28/2021. Due to the distribution and appearance consider aspiration pneumonia as an etiology . 3. Mediastinal and hilar fullness with mildly prominent lymph nodes. The fulln ess at the RIGHT hilum is difficult to evaluate without IV contrast. Lymphadeno alicia is not excluded. This could be reactive. 4. Marked constipation and obstipation. 5. Diffuse esophageal wall thickening. Probably from esophagitis.
== END 2021-10-23 07:48 | disposition home or self-care (01) ==
LOC: RAD 07:48
PROVIDERS: Visit Provider Nurse Practitioner Family
DX: R91.8 Other nonspecific abnormal finding of lung field (principal); K59.00 Constipation, unspecified
CPT/HCPCS: 71250

== ENCOUNTER → 2022-03-07 14:40 | Outpatient (BNVA) | payer MEDICARE, MEDICAID, OTHER, SELFPAY | PROVIDERS: Visit Provider Nurse Practitioner Psychiatric/Mental Health | DX: Z79.899 Other long term (current) drug therapy (principal); F84.0 Autistic disorder; F72 Severe intellectual disabilities; Z72.89 Other problems related to lifestyle | CPT/HCPCS: 80053; 80061; 83036 ==

== ENCOUNTER 2022-09-11 10:29 | Emergency (ER) | payer MEDICARE, MEDICAID, SELFPAY ==
--- NOTE | 2022-09-11 10:33 | XRR_ITS ---
PROCEDURE INFORMATION: Exam: XR Chest Exam date and time: 09/11/2022 10:40 AM Age: 47 years old Clinical indication: Cough and dyspnea; Additional info: Dyspnea/cough TECHNIQUE: Imaging protocol: Radiologic exam of the chest. Views: 1 view. COMPARISON: CT chest con [id number] 10/23/2021 8:30 AM FINDINGS: Lungs: Low lung volumes seen. The lungs are otherwise clear No consolidation. Pleural spaces: Unremarkable. No pleural effusion. No pneumothorax. Heart/Mediastinum: Unremarkable. No cardiomegaly. Retrocardiac air collection is seen which may reflect a hiatal hernia. Bones/joints: Unremarkable.
--- NOTE | 2022-09-11 10:34 | ED_ITS ---
HPI - General Adult General: Stated complaint: AMS Time Seen by Provider: 09/11/22 10:32 Source: patient Mode of arrival: ambulatory [facility] PFSH: Medical History (Updated 10/31/21 @ 11:15 by Adrienne Smyth [facility]) Autism spectrum disorder with accompanying language impairment and intellectual disability, requiring very substantial support GI bleed Herpes zoster Psychiatric care Self-injurious behavior Severe intellectual disabilities Family History Other Gallbladder disease Social History Smoking and tobacco status: never smoked Alcohol intake: never Substance/Drug Use: never Lives independently: No Housing: Other Details: [facility] Marital status: Single Current occupational status: disabled Discharge Plan Discharge Condition: Stable Prescriptions: No Action triamcinolone acetonide 0.1 % ointment 1 applic topical BID Qty: 80 3RF Rx Instructions: to back as directed montelukast [Singulair] 10 mg tablet 10 mg PO DAILY ferrous sulfate 325 mg (65 mg iron) tablet 325 mg PO . Fri polyethylene glycol 3350 [Miralax] 17 gram/dose powder 8.5 g PO BEDTIME propranolol 10 mg tablet 10 mg PO TID ascorbate calcium (vitamin C) 500 mg tablet 500 mg PO .Sat. finasteride [Proscar] 5 mg tablet 5 mg PO DAILY pantoprazole [Protonix] 40 mg tablet,delayed release (DR/EC) 40 mg PO DAILY ketoconazole 2 % cream 1 applic topical BID Qty: 60 2RF Rx Instructions: Apply twice daily to back x 4 weeks then prn for flares aripiprazole [Abilify] 20 mg tablet 20 mg PO .morning Qty: 30 6RF Rx Instructions: Take one tablet every morning atropine 1 % drops 2 drp sublingual BID PRN (Reason: secretions/drooling) Qty: 15 2RF Rx Instructions: May take 1-2 drops twice per day as needed for drooling/secretions clonazepam [Klonopin] 1 mg tablet 1 mg PO .8 pm Qty: 30 3RF Rx Instructions: Take one tablet at 8 pm mirtazapine [Remeron SolTab] 15 mg tablet,disintegrating 15 mg PO BEDTIME Qty: 30 6RF Rx Instructions: Take one tablet sublingual at bedtime, nothing to eat or drink 10 min after taking Miralax 17 gram/dose Powder 12.75 g PO DAILY Rx Instructions: Take 3/4 capful in the morning acetaminophen 325 mg Tablet 650 mg PO Q6H PRN (Reason: Pain) Milk of Magnesia 400 mg/5 mL Suspension 15 ml PO DAILY PRN (Reason: Constipation) Fleet Enema 19-7 gram/118 mL Enema 118 ml [place] DAILY PRN (Reason: Constipation) scopolamine base 1 mg over 3 days Patch 3 Day 1 mg transdermal Q3D fluticasone propionate 50 mcg/actuation [place],Suspension 2 spray INTRANASAL DAILY PRN (Reason: Nasal Congestion) Rx Instructions: administer into each nostril loratadine 10 mg Tablet 10 mg PO DAILY PRN (Reason: Allergy Symptoms) chlorhexidine gluconate 0.12 % Mouthwash 5 ml BUCCAL DAILY Calmoseptine 0.44-20.6 % Ointment 1 applic TOPICAL DAILY PRN (Reason: Rash) lactulose 20 gram/30 mL Solution 20 g PO BID PRN (Reason: Constipation) ondansetron HCl 8 mg Tablet 8 mg PO Q8H PRN (Reason: Nausea) Vicks Sinex 12-Hour 0.05 % [place],Non-Aerosol 2 spray INTRANASAL BID PRN (Reason: Nasal Congestion) tamsulosin 0.4 mg Capsule 0.4 mg PO BEDTIME Qty: 90 0RF Coding Level of Care Code ED [employer] Supervisor for Dayami Hollingsworth
[2022-09-11 10:35] VITALS: BP 139/83; PULSE 104; RESP 20; O2SAT 100
--- NOTE | 2022-09-11 10:38 | ECG_ITS ---
[facility] Test Date: 2022-09-11 Pat Name: Hammad Kimball Department: Room: Gender: Male [employer]: : 1975 Requested By: Zach Hawk Order Number: [id number] Kendal MD: Ruth Coto M.D. Measurements Intervals [place] Rate: 105 P: 114 SD: 143 QRS: 136 QRSD: 93 T: 151 QT: 336 QTc: 446 Interpretive Statements SINUS TACHYCARDIA WITH OCCASIONAL VENTRICULAR PREMATURE COMPLEXES INCOMPLETE RIGHT BUNDLE BRANCH BLOCK [90+ ms QRS DURATION, TERMINAL R IN V1/V2, 40+ ms S IN I/aVL/V4/V5/V6] POSSIBLE RIGHT VENTRICULAR HYPERTROPHY [SOME/ALL OF: PROMINENT R IN V1, LATE TRANSITION, RAD, LIZ, SSS] MODERATE ST DEPRESSION [0.05+ mV ST DEPRESSION] No previous ECG available for comparison Electronically Signed On 09-11-2022 16:50:55 CDT by Rtuh Coto M.D. [email or web address]
[2022-09-11 10:48] LABS: ABG PCO2 40.2 mmHg (35-45); ABG PH Result 7.39 (7.35-7.45); Alveolar-Arterial Oxygen Gradi 12.7 mmHg (5-10); Arterial Blood Gas Hematocrit 19.7 % (42-52); Base Excess ABG -0.5 mmol/L (-2.0-2.0); Blood Gas Allen Test Pos; Blood Gas Operator Identificat MONRO; Blood Gas Sample Site Radial, left; Blood Gas Sample Type Arterial; Carboxyhemoglobin 1.8 %THgb (0.4-20.1); HCO3 ABG 24.4 mmol/L (22-26); Ionized Calcium Level - ABG 1.2 mmol/L (1.1-1.4); Methemoglobin 1.4 % (0.4-1.5); Oxygen Device NC; Oxygen Saturation ABG 99.3; Potassium Level - ABG 4.1 mmol/L (3.5-5.0); Total Hemoglobin 6.4 g/dL (14-18)
--- NOTE | 2022-09-14 12:11 | DCPLANNER ---
Patient has a primary care physician
== END 2022-09-11 10:40 | disposition left against medical advice (07) ==
PROVIDERS: Emergency Provider Family Medicine
DX: Z53.21 Procedure and treatment not carried out due to patient leaving prior to being seen by health care provider (principal); R41.82 Altered mental status, unspecified
CPT/HCPCS: 36600; 71045; 80051; 82330; 82805; 93005; 99285

== ENCOUNTER 2022-09-28 10:59 | Oncology outpatient (recurring) (ONCR) | payer MEDICARE, MEDICAID, SELFPAY | END 2022-10-05 23:59 | disposition home or self-care (01) | PROVIDERS: Visit Provider Internal Medicine Medical Oncology | DX: R79.89 Other specified abnormal findings of blood chemistry (principal); G31.84 Mild cognitive impairment of uncertain or unknown etiology | CPT/HCPCS: 99202 ==

== ENCOUNTER → 2023-07-16 07:56 | Outpatient (BNVA) | payer MEDICARE, MEDICAID, OTHER, SELFPAY | PROVIDERS: Visit Provider Dermatology | DX: L20.89 Other atopic dermatitis (principal); L28.0 Lichen simplex chronicus | CPT/HCPCS: 99214 ==

== ENCOUNTER → 2023-08-06 14:16 | Outpatient (BNVA) | payer MEDICARE, MEDICAID, OTHER, SELFPAY | PROVIDERS: Visit Provider Dermatology | DX: L20.89 Other atopic dermatitis (principal); L28.0 Lichen simplex chronicus; L81.0 Postinflammatory hyperpigmentation | CPT/HCPCS: 99214 ==